=== PATIENT | male | born 1940 | race Caucasian/White ===

== ENCOUNTER 2019-02-26 08:53 | Day surgery (SDC) | payer MEDICARE ==
[~2019-02-26] VITALS: Ht 188 cm; Wt 96.2 kg
[~2019-02-26 08:53] MED LIST: ATOR20TA65 PO; DUTA0.5C17 PO; FAMO20TA8 PO; FOLI1TAB85 PO; METO-391 PO; SODI325T PO; SODIUM CHLORIDE 0.9% 1000ML 1,000 ML IV ONE; TAMS0.4C32 PO; TORS10TA18 PO; URSO300C4 PO; WARF4TAB72 PO
[2019-02-26 10:11] LABS: INR 1.23 (0.85-1.15); PROTHROMBIN TIME 12.8 SEC (9.6-11.6)
[2019-02-26 10:48] VITALS: BP 100/73
[2019-02-26] MEDS ORDERED: WARF4TAB72 PO (11:04)
[2019-02-26] MEDS ORDERED: WARF6TAB49 PO (11:04)
[2019-02-26] MEDS ORDERED: SPIRIVA (11:04)
[2019-02-26] MEDS ORDERED: ALBUTEROL (11:04)
[2019-02-26] MEDS ORDERED: PROPOFOL 10 MG/ML 20ML VIAL IV ONE (11:50)
[2019-02-26] MEDS ORDERED: EPHEDRINE SULFATE 50 MG/ML AMPULE ONE (12:01)
[2019-02-26 12:10] VITALS: BP 81/41
[2019-02-26 12:15] VITALS: BP 91/42
[2019-02-26 12:20] VITALS: BP 92/52
[2019-02-26 12:25] VITALS: BP 105/66
[2019-02-26 12:35] VITALS: BP 110/66
== END 2019-02-26 12:36 | disposition home or self-care (01) ==
LOC: ENDO 08:53 → DAH 08:53 → ENDO 12:36
PROVIDERS: ATTEND Internal Medicine Gastroenterology
DX: Z09 Encounter for follow-up examination after completed treatment for conditions other than malignant neoplasm (principal); D12.3 Benign neoplasm of transverse colon; K57.30 Diverticulosis of large intestine without perforation or abscess without bleeding; Z86.010 Personal history of colon polyps; D86.9 Sarcoidosis, unspecified; J44.9 Chronic obstructive pulmonary disease, unspecified; E78.5 Hyperlipidemia, unspecified; N19 Unspecified kidney failure; Z88.8 Allergy status to other drugs, medicaments and biological substances; Z79.899 Other long term (current) drug therapy; Z87.891 Personal history of nicotine dependence; Z98.890 Other specified postprocedural states; Z85.118 Personal history of other malignant neoplasm of bronchus and lung; Z83.3 Family history of diabetes mellitus
CPT/HCPCS: 36415; 45380; 85610; 88305; A4215; A4221; A4222; A4223; A4606; A4663; J2704; J3490; J7030

== ENCOUNTER → 2022-01-26 | Outpatient (CLI) | payer MEDICARE ==
[~2022-01-26] MED LIST changes: +ALBUTEROL; -DUTA0.5C17 PO; +DUTA0.5C37 PO; +IOHEXOL 350 MG/ML 100ML INFUS..BTL IV ONE; +IOHEXOL-350 50ML VIAL IV ONE; -SODIUM CHLORIDE 0.9% 1000ML 1,000 ML IV ONE; +SPIRIVA; +WARF6TAB49 PO
== END | disposition home or self-care (01) ==
LOC: RAH 10:35
PROVIDERS: ATTEND Internal Medicine Cardiovascular Disease
DX: I71.4 Abdominal aortic aneurysm, without rupture (principal); I70.203 Unspecified atherosclerosis of native arteries of extremities, bilateral legs; N40.0 Benign prostatic hyperplasia without lower urinary tract symptoms
CPT/HCPCS: 75635; Q9967 ×2

== ENCOUNTER → 2022-09-29 | Outpatient (CLI) | payer MEDICARE ==
[~2022-09-29] MED LIST changes: -IOHEXOL 350 MG/ML 100ML INFUS..BTL IV ONE; -IOHEXOL-350 50ML VIAL IV ONE
[2022-09-29 12:28] LABS: CREATININE 2.5 mg/dL (0.5-1.5); POTASSIUM 3.7 mmol/L (3.5-5.1)
== END | disposition home or self-care (01) ==
LOC: LAB 09:18
PROVIDERS: ATTEND Internal Medicine Cardiovascular Disease
DX: I10 Essential (primary) hypertension (principal)
CPT/HCPCS: 36415; 80048